=== PATIENT | female | born 1965 ===

== ENCOUNTER 2016-12-09 21:02 | Observation (INO) | payer BC ==
[~2016-12-09] VITALS: Ht 175.3 cm; Wt 161.2 kg
[2016-12-09 21:25] VITALS: BP 153/85; PULSE 74
[2016-12-10] VITALS (9 sets, daily range): BP systolic 91–110; BP diastolic 51–62; PULSE 68–80; TEMP 73–658.3
[2016-12-10] MEDS ORDERED: AMOXICILLIN 8751 TAB PO (12:05)
[2016-12-10] MEDS ORDERED: IBU600 MG PO (12:05)
[2016-12-10] MEDS ORDERED: NORCO 325 MG-51 TAB PO (12:05)
[2016-12-10] MEDS ORDERED: COLACE 100100 MG/CAP PO (12:08)
== END 2016-12-10 13:20 | disposition home or self-care (01) ==
LOC: SURG 21:02
DX: K35.2 Acute appendicitis with generalized peritonitis (principal); E66.01 Morbid (severe) obesity due to excess calories; F17.210 Nicotine dependence, cigarettes, uncomplicated
CPT/HCPCS: G0378; G0379; J0694; J1100; J1170; J2270; J2405; J2543; J2704; J2710; J3010; J7050; J7120